=== PATIENT | female | born 1935 | race Caucasian/White ===

== ENCOUNTER → 2019-03-13 | Emergency (ER) | payer OTHER ==
[~2019-03-13] VITALS: Ht 160 cm; Wt 48.5 kg
[~2019-03-13] MED LIST: AMLODIPINE-OLM1 EAC2; COZAAR50 MG
== END | disposition home or self-care (01) ==
LOC: ER 21:05
DX: G89.11 Acute pain due to trauma (principal); M79.652 Pain in left thigh; M79.18 Myalgia, other site

== ENCOUNTER 2023-05-05 21:21 | Emergency (ER) | payer OTHER ==
[~2023-05-05] VITALS: Ht 147.3 cm; Wt 46.3 kg
[2023-05-05] MEDS ORDERED: CHILDREN'S ASPI81 MG PO (22:08)
[2023-05-05] MEDS ORDERED: ANASTROZOLE1 MG PO (22:08)
[2023-05-05] MEDS ORDERED: AMIODARONE HCL100 MG PO (22:08)
[2023-05-05] MEDS ORDERED: LASIX20 MG PO (22:09)
[2023-05-05] MEDS ORDERED: LATANOPROST 0.7.5 ML OP (22:09)
[2023-05-05] MEDS ORDERED: OMEPRAZOLE MAGN20 MG PO (22:10)
[2023-05-05] MEDS ORDERED: PROLIA60 MG/1 ML SUBCUTANEO (22:10)
[2023-05-06] MEDS ORDERED: NORFLEX100MG PO (01:31)
== END 2023-05-06 01:38 | disposition home or self-care (01) ==
LOC: ER 21:21
DX: S00.83XA Contusion of other part of head, initial encounter (principal); S20.229A Contusion of unspecified back wall of thorax, initial encounter; W19.XXXA Unspecified fall, initial encounter; Y93.9 Activity, unspecified; Y92.89 Other specified places as the place of occurrence of the external cause; Y99.9 Unspecified external cause status; M54.89 Other dorsalgia; Z88.0 Allergy status to penicillin; M51.35 Other intervertebral disc degeneration, thoracolumbar region